=== PATIENT | male | born 1995 | race Caucasian/White ===

== ENCOUNTER 2018-04-17 13:10 | Emergency (ER) | payer OTHER ==
[~2018-04-17] VITALS: Ht 162.6 cm; Wt 56.7 kg
[2018-04-17 13:27] LABS: URINE BILIRUBIN NEGATIVE (Negative); URINE BLOOD NEGATIVE (Negative); URINE CLARITY CLEAR; URINE COLOR YELLOW; URINE GLUCOSE-RANDOM NEGATIVE (Negative); URINE KETONES NEGATIVE (Negative); URINE LEUKOCYTES NEGATIVE (Negative); URINE NITRITE NEGATIVE (Negative); URINE PROTEIN NEGATIVE (Negative); URINE UROBILINOGEN 0.2 E.U./dl (0.2-1.0)
[2018-04-17] MEDS ORDERED: COLACE100 MG PO (14:09)
[2018-04-17] MEDS ORDERED: PROCTOCORT30 MG RC (14:09)
[2018-04-17 14:19] VITALS: BP 105/67
== END 2018-04-17 14:17 | disposition home or self-care (01) ==
LOC: M.ERS 13:10
PROVIDERS: Nurse Practitioner Family
DX: K60.2 Anal fissure, unspecified (principal); F17.210 Nicotine dependence, cigarettes, uncomplicated